=== PATIENT | male | born 1965 | race Caucasian/White ===

== ENCOUNTER 2018-07-19 20:09 | Emergency (ER) | payer SELFPAY ==
[2018-07-19] MEDS ORDERED: LIDOCAINE 1% W/EPI 1:100,000 MDV 50 ML VIAL ONE (20:31)
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
== END 2018-07-19 20:44 | disposition left against medical advice (07) ==
LOC: ER 20:09
PROC: 0JQ00ZZ Repair Scalp Subcutaneous Tissue and Fascia, Open Approach (ICD-10-PCS; principal; 2018-07-19)
DX: S01.01XA Laceration without foreign body of scalp, initial encounter (principal); W22.8XXA Striking against or struck by other objects, initial encounter; Y93.9 Activity, unspecified; Y92.39 Other specified sports and athletic area as the place of occurrence of the external cause
CPT/HCPCS: 99282

== ENCOUNTER 2018-08-02 17:27 | Emergency (ER) | payer SELFPAY ==
--- NOTE | 2018-08-02 18:03 | ER ---
Nurse's Notes [facility] Name: Mariano Berrios Age: 52 yrs Sex: Male : 1965 Arrival Date: 08/02/2018 Time: 17:29 Bed 2 Private MD: None, None Diagnosis: Encounter for removal of sutures-[place] Presentation: 08/02 17:39 Presenting complaint: Patient states: Here for staple removal from laceration to right aj forehead 15 days ago. Wound is well approximated with not signs of infection. Transition of care: patient was not received from another setting of care. Onset of symptoms was July 21, 2018. Risk Assessment: Do you want to hurt yourself or someone else? Patient reports no desire to harm self or others. Initial Sepsis Screen: Does the patient meet any 2 criteria? No. Patient's initial sepsis screen is negative. Does the patient have a suspected source of infection? No. Patient's initial sepsis screen is negative. Care prior to arrival: None. 17:39 Method Of Arrival: Ambulatory 17:39 Acuity: SONIDO 5 aj Triage Assessment: 17:42 General: Appears in no apparent distress. comfortable, Behavior is calm, cooperative, aj appropriate for age. Pain: Denies pain. Neuro: Level of Consciousness is awake, alert, obeys commands, Oriented to person, place, time, situation, Appropriate for age. Respiratory: Airway is patent Respiratory effort is even, unlabored, Respiratory pattern is regular, symmetrical. Derm: Skin is intact, is healthy with good turgor, Skin is pink, warm \\T\\ dry. normal. Historical: - Allergies: 17:42 No Known Allergies; aj - Home Meds: 17:42 None [Active]; aj - PMHx: 17:42 None; aj - PSHx: 17:42 Hernia repair; aj - Immunization history:: Adult Immunizations up to date. - Social history:: Smoking status: Patient/guardian denies using tobacco. - Ebola Screening: : Patient negative for fever greater than or equal to 101.5 degrees Fahrenheit, and additional compatible Ebola Virus Disease symptoms Patient denies exposure to infectious person Patient denies travel to an Ebola-affected area in the 21 days before illness onset No symptoms or risks identified at this time. Screenin:43 Abuse screen: Denies threats or abuse. Denies injuries from another. Nutritional ss screening: No deficits noted. Tuberculosis screening: No symptoms or risk factors identified. Never had TB. Fall Risk None identified. Assessment: 17:43 General: Appears in no apparent distress. comfortable, Behavior is calm, cooperative. ss Pain: Denies pain. Neuro: Level of Consciousness is awake, alert, obeys commands, Oriented to person, place, time, situation. Cardiovascular: Capillary refill < 3 seconds is brisk in bilateral fingers. Respiratory: Airway is patent Respiratory effort is even, unlabored, Respiratory pattern is regular, symmetrical. Derm: Skin is pink, warm \\T\\ dry. normal, 5 garland noted above R eyebrow. No redness, swelling or drainage noted. Patient denies pain. Garland were placed 15 days ago. Vital Signs: 17:42 BP 132 / 85; Pulse 95; Resp 17; Temp 97.7; Pulse Ox 98% on R/A; Weight 97.52 kg; Height aj 6 ft. 4 in. (193.04 cm); 17:42 Body Mass Index 26.17 (97.52 kg, 193.04 cm) ED Course: 17:29 Patient arrived in ED. mr 17:29 None, None is Private Physician. mr 17:41 Triage completed. aj 17:42 Arm band placed on right wrist. Patient placed in an exam room. aj 17:43 Shanice Juarez, RN is Primary Nurse. 17:43 Patient has correct armband on for positive identification. Bed in low position. Call light in reach. Side rails up X 1. 17:45 uSng Pyle [facility]. 17:45 Max Jefferson MD is Attending Physician. cp 18:09 garland removed (5), pt tolerated well. Patient did not have IV access during this emergency room visit. Wound care: attempted to place steri strips, pt states, "I'm just going to take them right off anyway, just put one on there." MAEVE Estevez notified. Administered Medications: No medications were administered Outcome: 18:02 Discharge ordered by . cp 18:09 Discharged to home ambulatory. 18:09 Condition: good 18:09 Discharge instructions given to patient, Instructed on discharge instructions, follow up and referral plans. wound care, Demonstrated understanding of instructions, follow-up care, wound care. 18:12 Patient left the ED. ss Signatures: Shona Craft RN RN aj Rivera, Mary mr Shanice Juarez RN RN ss Sung Pyle PA PA cp
--- NOTE | 2018-08-02 18:03 | EDPHYS ---
Physician Documentation [facility] Name: Mariano Berrios Age: 52 yrs Sex: Male : 1965 Arrival Date: 08/02/2018 Time: 17:29 Bed 2 Private MD: None, None ED Physician Max Jefferson HPI: 08/02 17:50 This 52 yrs old Male presents to ER via Ambulatory with complaints of Staple cp Removal. 17:50 The patient has garland on the right frontal scalp. cp 17:50 Previous treatment: The patient was initially treated on July 19, 2018, the care cp was rendered at [facility], Treatment type: The patient's original treatment included garland, Outpatient prescription(s): The patient was given prescription(s) for nothing, Previous recheck: the patient has not been checked since the original treatment. Sutures/garland progress: The patient has no c/o's. The wound is well-healing with no redness, swelling, discharge, or dehiscence reported. Historical: - Allergies: 17:42 No Known Allergies; aj - Home Meds: 17:42 None [Active]; aj - PMHx: 17:42 None; aj - PSHx: 17:42 Hernia repair; aj - Immunization history:: Adult Immunizations up to date. - Social history:: Smoking status: Patient/guardian denies using tobacco. - Ebola Screening: : Patient negative for fever greater than or equal to 101.5 degrees Fahrenheit, and additional compatible Ebola Virus Disease symptoms Patient denies exposure to infectious person Patient denies travel to an Ebola-affected area in the 21 days before illness onset No symptoms or risks identified at this time. ROS: 17:53 Constitutional: Negative for fever, chills, and weight loss. cp 17:53 Skin: Positive for laceration(s), of the right frontal scalp. 17:53 All other systems are negative. Exam: 17:55 Constitutional: The patient appears in no acute distress, alert, awake, comfortable, cp non-toxic, well developed, well nourished. 17:55 Head/face: Noted is a laceration(s), of the right frontal scalp. cp 17:55 Eyes: Periorbital structures: appear normal, Conjunctiva: normal, no exudate, no injection, Lids and lashes: appear normal, bilaterally. 17:55 ENT: External ear(s): are unremarkable, Nose: is normal, Mouth: Lips: moist, Oral mucosa: moist, Posterior pharynx: is normal, airway is patent. 17:55 Chest/axilla: Inspection: normal. 17:55 Cardiovascular: Rate: normal. 17:55 Respiratory: the patient does not display signs of respiratory distress, Respirations: normal. 17:55 Abdomen/GI: Exam negative for discomfort, distension, guarding, Inspection: abdomen appears normal. 17:55 Skin: Wound recheck: Staple laceration closure: the wound is healing well, the edges are well approximated, no evidence of dehiscence, no drainage, no erythema, no swelling. 17:55 Neuro: Orientation: to person, place \T\ time. Mentation: is normal, Motor: moves all fours, strength is normal, Gait: is steady. Vital Signs: 17:42 BP 132 / 85; Pulse 95; Resp 17; Temp 97.7; Pulse Ox 98% on R/A; Weight 97.52 kg; Height aj 6 ft. 4 in. (193.04 cm); 17:42 Body Mass Index 26.17 (97.52 kg, 193.04 cm) aj Procedures: 18:00 Suture/Staple removal: Removed 5 garland, from right frontal scalp area, site appears cp well healed, dressed with band aid, Neosporin, Patient tolerated well. MDM: 17:45 Patient medically screened. 18:02 Data reviewed: vital signs, nurses notes, and as a result, I will discharge patient. 18:02 Counseling: I had a detailed discussion with the patient and/or guardian regarding: the cp historical points, exam findings, and any diagnostic results supporting the discharge/admit diagnosis, to return to the emergency department if symptoms worsen or persist or if there are any questions or concerns that arise at home. 08/02 17:58 Order name: Wound dressing: steri-strips; Complete Time: 18:08 cp Administered Medications: No medications were administered Disposition: 18:15 Chart complete. 08/03 13:15 Co-signature as Attending Physician, Max Jefferson MD. [facility] Disposition: 08/02/18 18:02 Discharged to Home. Impression: Encounter for removal of sutures - [place]. - Condition is Stable. - Discharge Instructions: Stitches, Garland, or Adhesive Wound Closure. - Medication Reconciliation Form, Thank You Letter, Antibiotic Education, Prescription Opioid Use form. - Follow up: Emergency Department; When: As needed; Reason: Worsening of condition. - Problem is new. - Symptoms have improved. Signatures: Shona Craft RN RN aj Rittger, Kevin, MD MD kdr Smirch, Shelby, RN RN ss Page, Corey, PA PA cp Corrections: (The following items were deleted from the chart) 08/02 18:12 18:02 08/02/2018 18:02 Discharged to Home. Impression: Encounter for removal of sutures ss - Garland. Condition is Stable. Forms are Medication Reconciliation Form, Thank You Letter, Antibiotic Education, Prescription Opioid Use. Follow up: Emergency Department; When: As needed; Reason: Worsening of condition. Problem is new. Symptoms have improved. cp 08/03 02:23 08/02 17:50 This 52 yrs old Male presents to ER via Ambulatory with cp complaints of Suture Removal. cp
== END 2018-08-02 18:12 | disposition home or self-care (01) ==
LOC: ER 17:27
DX: Z48.02 Encounter for removal of sutures (principal)
CPT/HCPCS: 99283

== ENCOUNTER 2021-07-31 14:21 | Emergency (ER) | payer SELFPAY ==
[2021-07-31 14:40] LABS: Absolute Lymphocytes (CBC) 2.1 K/uL (0.7-4.9); Basophils % 1.2 % (0-1.3); Hematocrit 40.9 % (39.6-49.0); MPV 6.7 fL (7.6-11.3); RBC Red Blood Cell Count 4.37 M/uL (4.33-5.43)
[2021-07-31 14:43] LABS: Protime INR 0.91
[2021-07-31 14:51] LABS: Urine Blood Negative (Negative); Urine Glucose Negative (Negative); Urine Protein Negative (Negative); Urine Specific Gravity <=1.005 (1.005-1.030)
[2021-07-31 14:58] LABS: BUN Blood Urea Nitrogen 12 mg/dL (7-18); Bicarbonate 23 mmol/L (21-32); Glucose Level 98 mg/dL (74-106); Sodium Level 139 mmol/L (136-145); Troponin (Emerg Dept Use Only) < 0.02 ng/mL (0.0-0.045)
--- NOTE | 2021-07-31 15:11 | RAD REPORT ---
EXAM DESCRIPTION: CT - Ct Stroke Brain Wo Cont - 07/31/2021 2:54 pm CLINICAL HISTORY: WEAKNESSleft side with numbness, acute onset COMPARISON: <Comparisons>none TECHNIQUE: Axial 5 millimeter thick images of the head were obtained without IV contrast. All CT scans are performed using dose optimization technique as appropriate and may include automated exposure control or mA/KV adjustment according to patient size. FINDINGS: No intracranial hemorrhage, mass, or cerebral edema. No acute cortical based infarction id entified. No cortical edema or sulcal effacement. No significant atrophy or chronic ischemic change. Ventricles are normal. [place] matter-white matter differentiation is preserved. Visualized portions of the mastoid air cells, paranasal sinuses, and orbits are unremarkable. Findings telephoned to the doctor Rhina at 3:07 p.m. IMPRESSION: No CT evidence of acute intracranial process.
--- NOTE | 2021-07-31 15:12 | RAD REPORT ---
EXAM DESCRIPTION: CT - Head angio - 07/31/2021 2:56 pm CLINICAL HISTORY: left sided weakness and numbness TECHNIQUE: During dynamic enhancement using nonionic IV contrast, axial 1 millimeter thick images of the head were obtained. Sagittal and axial reconstruction images were generated using MIP technique and reviewed. All CT scans are performed using dose optimization technique as appropriate and may include automated exposure control or mA/KV adjustment according to patient size. COMPARISON: CT head same date FINDINGS: No aneurysm or vascular malformation identified. Major venous sinuses are patent. No stenosis, named branch occlusion, vasculitis or other significant vascular finding identifiable. IMPRESSION: Negative CT angio head examination.
--- NOTE | 2021-07-31 15:38 | RAD REPORT ---
EXAM DESCRIPTION: RAD - Chest Single View - 07/31/2021 3:12 pm CLINICAL HISTORY: weakness COMPARISON: None TECHNIQUE: AP portable chest image was obtained 07/31/2021 3:12 pm . FINDINGS: Lung volumes low accentuating bibasilar interstitial pattern. No consolidation or mass. No significant failure or volume overload suspected. Heart and vasculature are normal. No measurable pl eural effusion and no pneumothorax. No acute bony abnormality seen. No acute aortic findings suspecte d. IMPRESSION: No acute cardiopulmonary process.
[2021-07-31] MEDS ORDERED: ASPIRIN 81 MG CHEWABLE TABLET ONE (16:02)
[2021-07-31] MEDS ORDERED: cloNIDine HCL 0.1 MG TAB ONE (16:03)
--- NOTE | 2021-07-31 16:05 | EDPHYS ---
Physician Documentation [facility] Name: Mariano Berrios Age: 55 yrs Sex: Male : 1965 Arrival Date: 07/31/2021 Time: 14:23 Bed 7 Private MD: ED Physician Gordon Lantigua HPI: 07/31 14:57 This 55 yrs old Male presents to ER via Wheelchair with complaints of rn Left-sided weakness and numbness. 14:57 The patient presents to the emergency department with weakness of the left upper rn extremity, left lower extremity, that is mild, difficult walking, paresthesias of the left lower extremity, left upper extremity. Onset: The symptoms/episode began/occurred yesterday. Associated signs and symptoms: Pertinent positives: This patient does not have any pertinent positives. Pertinent negatives: altered mental status, fever. Historical: - Allergies: 14:27 No Known Allergies; ss - Home Meds: 14:27 "Cammie aspirin sometimes" [Active]; ss - PSHx: 14:27 abdominal surgery; ss - Immunization history:: Client reports receiving the 2nd dose of the Covid vaccine. - Social history:: Smoking status: Patient reports the use of cigarette tobacco products, smokes one-half pack cigarettes per day. - Family history:: not pertinent. - Hospitalizations: : No recent hospitalization is reported. ROS: 15:18 Constitutional: Negative for fever, chills, and weight loss, Eyes: Negative for injury, rn pain, redness, and discharge, Neck: Negative for injury, pain, and swelling, Cardiovascular: Negative for chest pain, palpitations, and edema, Respiratory: Negative for shortness of breath, cough, wheezing, and pleuritic chest pain, Abdomen/GI: Negative for abdominal pain, nausea, vomiting, diarrhea, and constipation, Back: Negative for injury and pain, MS/Extremity: Negative for injury and deformity, Skin: Negative for injury, rash, and discoloration, Neuro: Negative for headache, seizure 15:18 All other systems are negative. rn Exam: 15:18 Constitutional: This is a well developed, well nourished patient who is awake, alert, rn and in no acute distress. Eyes assistance to get into bed from wheelchair Head/Face: Normocephalic, atraumatic. Eyes: Periorbital areas with no swelling, redness, or edema. Cardiovascular: Regular rate and rhythm. No pulse deficits. Respiratory: No increased work of breathing, no retractions or nasal flaring. Abdomen/GI: Soft, non-tender, no masses, no pulsatile masses Skin: Warm, dry with normal turgor. Normal color with no rashes, no lesions, and no evidence of cellulitis. MS/ Extremity: Pulses equal, no cyanosis. Neuro: Awake and alert, GCS 15, oriented to person, place, time, and situation. Cranial nerves II-XII grossly intact. Motor strength 4-/5 LLE, 4/5LUE with drift, 5/5 strength RUE/RLE. Sensory decreased LLE/LUE. Cerebellar exam normal. Unable to ambulate without assistance 2/2 weakness of legs. Vital Signs: 14:23 BP 143 / 101; Pulse 97; Resp 19; Pulse Ox 98% on R/A; Weight 97.52 kg; Height 6 ft. 3 ss in. (190.50 cm); Pain 7/10; 14:23 Temp 97.9(TE); tw2 15:45 BP 150 / 112; Pulse 90; Resp 17; Pulse Ox 97% on R/A; tw2 14:23 Body Mass Index 26.87 (97.52 kg, 190.50 cm) ss MDM: 14:23 Patient medically screened. rn 15:09 ED course: No acute findings on CT or CT angio per Dr. Carreno. rn 15:51 Data reviewed: vital signs, nurses notes, lab test result(s). rn 16:03 Data interpreted: warp placer: rate is 90 beats/min, rhythm is normal sinus rhythm, rn regular, with no ectopy, Interpretation: normal rate, normal rhythm, Pulse oximetry: on room air is 97 %. Interpretation: normal. Counseling: I had a detailed discussion with the patient and/or guardian regarding: the historical points, exam findings, and any diagnostic results supporting the discharge/admit diagnosis, lab results, radiology results, the need for further work-up and treatment in the hospital. Response to treatment: There is no appreciated change of the patient's symptoms at this time, and as a result, I will admit patient. Admission orders: after a detailed discussion of the patient's condition and case, the admit orders are written by me. ED course: CT head and CT angio no acute findings. Was talking to patient who was initially okay with being admitted to the hospital, now refuses. Insists that we pull out his IV and let him go. Had a long talk with him in front of his family and notified him that I believe he is having a stroke and if he leaves without further evaluation and optimization of his medication and medical problems he can go on to have a larger more debilitating stroke. Patient understands this and verbalizes understanding and insists on going home.. 07/31 14:24 Order name: Basic Metabolic Panel; Complete Time: 15:12 rn 07/31 14:24 Order name: CBC with Diff; Complete Time: 15:12 07/31 14:24 Order name: Protime (+inr); Complete Time: 15:12 07/31 14:24 Order name: Ptt, Activated; Complete Time: 15:12 07/31 14:24 Order name: Troponin (emerg Dept Use Only); Complete Time: 15:12 07/31 14:43 Order name: Glucose, Ancillary Testing; Complete Time: 15:12 EDTN 07/31 14:24 Order name: CT Stroke Brain w/o Contrast; Complete Time: 15:12 07/31 14:24 Order name: Stroke CXR 1 View; Complete Time: 15:50 07/31 14:24 Order name: EKG; Complete Time: 14:25 07/31 14:24 Order name: CT Head Angio; Complete Time: 15:34 07/31 14:51 Order name: Urine Dipstick-Ancillary; Complete Time: 15:12 EDTN 07/31 14:24 Order name: Accucheck; Complete Time: 14:41 rn 07/31 14:24 Order name: Cardiac monitoring; Complete Time: 14:41 07/31 14:24 Order name: EKG - Nurse/Tech; Complete Time: 14:41 07/31 14:24 Order name: IV Saline Lock; Complete Time: 14:41 07/31 14:24 Order name: Labs collected and sent; Complete Time: 14:41 07/31 14:24 Order name: O2 Per Protocol; Complete Time: 14:41 07/31 14:24 Order name: O2 Sat Monitoring; Complete Time: 14:41 rn 07/31 14:24 Order name: Stroke Swallow Screen; Complete Time: 15:08 rn Administered Medications: 15:45 Drug: Aspirin Chewable Tablet 324 mg Route: PO; tw2 16:10 Follow up: Response: No adverse reaction tw2 15:45 Drug: cloNIDine 0.1 mg Route: PO; tw2 16:10 Follow up: Response: No adverse reaction tw2 Disposition Summary: 07/31/21 16:04 Left Against Medical Advice Location: Home rn Problem: new rn Symptoms: are unchanged rn Condition: Stable rn Diagnosis - Cerebral infarction, unspecified rn - Weakness rn - Paresthesia of skin rn Followup: rn - With: Marcel Colunga MD - When: As needed - Reason: Recheck today's complaints, Re-evaluation by your physician Discharge Instructions: - Discharge Summary Sheet rn - Paresthesia rn - Ischemic Stroke rn - Weakness rn - Sensory Loss After a Stroke rn Signatures: Dispatcher [employer] EDGordon Jones MD MD rn Smirch, Shelby, RN Loreta Evans RN RN tw2 Corrections: (The following items were deleted from the chart) 15:22 15:18 Constitutional: This is a well developed, well nourished patient who is awake, rn alert, and in no acute distress. Eyes assistance to get into bed from wheelchair Head/Face: Normocephalic, atraumatic. rn
--- NOTE | 2021-07-31 16:05 | ER ---
Nurse's Notes [facility] Name: Mariano Berrios Age: 55 yrs Sex: Male : 1965 Arrival Date: 07/31/2021 Time: 14:23 Bed 7 Private MD: Diagnosis: Cerebral infarction, unspecified;Weakness;Paresthesia of skin Presentation: 07/31 14:23 Chief complaint: Patient states: L sided pain and weakness that began yesterday ss morning. Coronavirus screen: Client denies travel out of the [place] in the last 14 days. Ebola Screen: Patient denies exposure to infectious person. Patient denies travel to an Ebola-affected area in the 21 days before illness onset. Initial Sepsis Screen: Does the patient meet any 2 criteria? No. Patient's initial sepsis screen is negative. Does the patient have a suspected source of infection? No. Patient's initial sepsis screen is negative. Risk Assessment: Do you want to hurt yourself or someone else? Patient reports no desire to harm self or others. Onset of symptoms was July 30, 2021 at 08:00. 14:23 Method Of Arrival: Wheelchair ss 14:23 Acuity: SONIDO 3 ss Historical: - Allergies: 14:27 No Known Allergies; ss - Home Meds: 14:27 "Cammie aspirin sometimes" [Active]; ss - PSHx: 14:27 abdominal surgery; ss - Immunization history:: Client reports receiving the 2nd dose of the Covid vaccine. - Social history:: Smoking status: Patient reports the use of cigarette tobacco products, smokes one-half pack cigarettes per day. - Family history:: not pertinent. - Hospitalizations: : No recent hospitalization is reported. Screenin:41 Abuse screen: Denies threats or abuse. Nutritional screening: No deficits noted. tw2 Tuberculosis screening: No symptoms or risk factors identified. Fall Risk None identified. 15:09 Patient has been NPO before screening. The patient is alert, able to follow commands. tw2 The patient does not exhibit slurred or garbled speech The patient is not exhibiting difficulty speaking. The patient does not exhibit difficulty understanding words. The patient is able to swallow own secretions with no drooling or need for suction. Patient tolerated one teaspoon of water. No drooling, immediate coughing, gurgling, or clearing of the throat was noted. The patient tolerated 90mL of water. No drooling, immediate coughing, gurgling, or clearing of the throat was noted. The patient passed the bedside swallow screening. Oral medications may be given as ordered. Contact Physician for further diet orders. Provider notified of bedside swallow screening results: Gordon Lantigua MD. Assessment: 15:45 Reassessment: provider at bedside at this time giving pt and family results. tw2 15:47 Reassessment: Patient appears in no apparent distress at this time. Patient and/or tw2 family updated on plan of care and expected duration. Pain level reassessed. Patient is alert, oriented x 3, equal unlabored respirations, skin warm/dry/pink. 16:15 Reassessment: pt states "maam, just come take all this off of me, im just ready to tw2 leave, i need to get my head right", pt encouraged to stay as recommended by provider Dr. Lantigua's instructions and recommendations. pt states "no just go ahead and get this all off of me". provider notified of pts requests. Vital Signs: 14:23 BP 143 / 101; Pulse 97; Resp 19; Pulse Ox 98% on R/A; Weight 97.52 kg; Height 6 ft. 3 ss in. (190.50 cm); Pain 7/10; 14:23 Temp 97.9(TE); tw2 15:45 BP 150 / 112; Pulse 90; Resp 17; Pulse Ox 97% on R/A; tw2 14:23 Body Mass Index 26.87 (97.52 kg, 190.50 cm) ED Course: 14:23 Patient arrived in ED. rn 14:23 Gordon Lantigua MD is Attending Physician. rn 14:23 Placed in gown. Bed in low position. Side rails up X2. hardboard panel printer on. Pulse ox on. tw2 NIBP on. 14:23 Inserted saline lock: 20 gauge in left wrist, using aseptic technique. Blood collected. tw2 14:27 Triage completed. ss 14:27 Arm band placed on left wrist. ss 14:41 Loreta Antunez, ELVIS is Primary Nurse. tw2 14:54 CT Stroke Brain w/o Contrast In Process Unspecified. EDMS 14:56 CT Head Angio In Process Unspecified. EDMS 15:12 Stroke CXR 1 View In Process Unspecified. EDMS 16:04 Marcel Colunga MD is Referral Physician. rn 16:16 IV discontinued, intact, bleeding controlled, No redness/swelling at site. Pressure tw2 dressing applied. Administered Medications: 15:45 Drug: Aspirin Chewable Tablet 324 mg Route: PO; tw2 16:10 Follow up: Response: No adverse reaction tw2 15:45 Drug: cloNIDine 0.1 mg Route: PO; tw2 16:10 Follow up: Response: No adverse reaction tw2 Outcome: 16:17 AMA AMA form signed tw2 16:17 Patient left the ED. tw2 Signatures: Dispatcher [employer] EDDE Gordon Lantigua MD MD rn Smirch, Shelby, RN RN ss Wise, Tara, RN RN tw2
[2021-07-31 16:41] VITALS: TEMP 97.9
[2021-07-31 16:42] VITALS: BP 150/112; O2SAT 97
--- NOTE | 2021-08-01 07:06 | EKG ---
Test Date: 2021-07-31 Test Time: 14:28:54 Lead Mobile Developer: BHUMIKA MEASUREMENT RESULTS: Intervals: Rate: 96 OK: 172 QRSD: 90 QT: 376 QTc: 475 Ledbetter: P: 41 OK: 172 QRS: 54 T: 67 INTERPRETIVE STATEMENTS: Normal sinus rhythm Possible Left atrial enlargement Borderline ECG Compared to ECG 07/29/2011 16:45:53 No significant changes Electronically Signed On 08-01-21 07:04:36 CDT by Victoriano Lowe
== END 2021-07-31 16:17 | disposition left against medical advice (07) ==
LOC: ER 14:21
DX: I63.9 Cerebral infarction, unspecified (principal); R20.2 Paresthesia of skin; F17.210 Nicotine dependence, cigarettes, uncomplicated
CPT/HCPCS: 36415; 70450; 70496; 71045; 80048; 81003; 82565; 82947; 84484; 85025; 85610; 85730; 93005; 99284; Q9967

== ENCOUNTER 2024-01-17 18:54 | Emergency (ER) | payer OTHER, SELFPAY ==
--- OUTSIDE RECORDS SUMMARY | 2024-01-17 19:01 | XMS REPORT | Continuity of Care Document ---
Author Name Unknown Address [address] [facility] [address] [place] [address] [facility] thconnect Address [address] [facility] [address] [place] [address] Care Team Providers Care Document Specialist Name Role Phone Unknown, Physician Primary Care Physician MIKEY Rivera Attending Clinician Unavailable EVANGELISTA Attending Clinician Unavailable Morris Fan DO Attending Clinician [phone] Keyshawn Starkey MD Attending Clinician [phone] Julito Day MD Attending Clinician [phone] EVANGELISTA Admitting Clinician Unavailable Keyshawn Starkey MD Admitting Clinician [phone] Payers Payer Name Policy Type Policy Number Effective Date Expirati on Date Source [employer] [id number] 2020 00:00:00 2024 00:00:00 Problems Condition Name Condition Details Condition Category Status Onset Date Resolution Date Last Treatment Date Treating Clinician Comments Source Chest pain Chest pain Disease Active 2020-10 00:00: 00 [facility] 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 Disease Active 2020-10 00:00: 00 [facility] Hyperkalem ia Hyperkalem ia Disease Active 2020-10 00:00: 00 [facility] 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 03-04 00:00: 00 [facility] Other chest pain Other chest pain Disease Active 11-14 00:00: 00 [facility] Essential hypertensi on, benign Essential hypertensi on, benign Disease Active 11-14 00:00: 00 [facility] Allergies, Adverse Reactions, Alerts Allergy Name Allergy Type Status Severity Reaction(s) Onset Date Inactive Date Treating Clinician Comments Source NO KNOWN ALLERGIE S Drug Class Active [facility] Social History Social Habit Start Date Stop Date Quantity Comments Source History of tobacco use Cigarette Smoker [facility] Exposure to SARS-CoV-2 (event) Not sure [facility] Alcohol intake 2021-08-01 00:00:00 2021-08-01 00:00:00 1.43 /d [facility] Sex Ass[birth year] At 1965 00:00:00 1965 00:00:00 [facility] Smoking Status Start Date Stop Date Source Current every day smoker [facility] Tobacco smoking consumption unknown [facility] Medications Ordered Medication Name Filled Medication Name Start Date Stop Date Current Medication? Ordering Clinician Indication Dosage Frequency Signature (SIG) Comments Components Source enalapril (VASOTEC) tablet 2.5 mg 2020-10 14:00: 00 Yes 2.5mg 2.5 mg, Oral, DAILY, First dose on Sun08/02/21 at 0900, Until Discontinu ed, Routine [facility] aspirin chewable tablet 81 mg 2020-10 14:00: 00 Yes 81mg 81 mg, Oral, DAILY, First dose on Sun08/02/21 at 0900, Until Discontinu ed, Routine [facility] atorvastati n (LIPITOR) tablet 20 mg 2020-10 02:00: 00 Yes 20mg 20 mg, Oral, QHS, First dose on Sun08/01/21 at 2100, Until Discontinu ed, Routine [facility] metoprolol tartrate (LOPRESSOR) tablet 25 mg 2020-10 01:00: 00 Yes 25mg 25 mg, Oral, BID, First dose on Sun08/01/21 at 2000, Until Discontinu ed, Routine [facility] isosorbide dinitrate (ISORDIL) tablet 20 mg 2020-10 01:00: 00 Yes 20mg 20 mg, Oral, BID, First dose on Sun08/01/21 at 2000, Until Discontinu ed, Routine [facility] nicotine (NICODERM) 14 mg/24 hr patch 1 Patch 2020-10 00:30: 00 Yes 1{patch } 1 Patch, Topical, Administer over 24 Hours, Q24H, First dose on Sun08/01/21 at 1930, Until Discontinu ed, Routine [facility] aspirin 81 mg chewable tablet 2020-10 00:00: 00 Yes [id number] 81mg Take 1 tablet by mouth daily. [facility] atorvastati n 20 mg tablet 2020-10 00:00: 00 Yes [id number] 1 by mouth every day at bedtime [facility] hydroCHLORO thiazide 25 mg tablet 2020-10 00:00: 00 09-02 05:59 :00 No [id number] 25mg Take 1 tablet by mouth daily for 30 days. [facility] isosorbide dinitrate 20 mg tablet 2020-10 00:00: 00 09-02 05:59 :00 No [id number] 20mg Take 1 tablet by mouth 2 (two) times daily for 30 days. [facility] sodium polystyrene sulfonate (KAYEXALATE ) 15 gram/60 mL suspension 15 g 2020-10 23:45: 00 08-02 02:25 :00 No 15g 15 g, Oral, ONCE, 1 dose, On Sun08/01/21 at 1845, Routine [facility] ketorolac (TORADOL) injection 30 mg 2020-10 23:16: 08 Yes 30mg 30 mg, Slow IV Push, Q6HPRN, 4 doses, Starting on Sun08/01/21 at 1816, Until Discontinu ed, Routine, Pain (scale 4-6)
[facility] approving Restricted medication : MEGADC [facility] zolpidem (AMBIEN) tablet 5 mg 2020-10 23:15: 31 Yes 5mg 5 mg, Oral, QHSPRN, Starting on Sun08/01/21 at 1815, Until Discontinu ed, Routine, Insomnia [facility] nitroglycer in (NITROSTAT) sublingual tablet 0.4 mg 2020-10 22:45: 00 08-01 21:50 :00 No .4mg 0.4 mg, Sublingual , ONCE, 1 dose, On Sun08/01/21 at 1745, Routine [facility] morpHINE injection 2 mg 2020-10 21:36: 14 Yes 2mg 2 mg, Slow IV Push, Q4HPRN, Starting on Sun08/01/21 at 1636, Until Discontinu ed, Routine, Pain (scale 7-10), Chest pain [facility] acetaminoph en (TYLENOL) tablet 650 mg 2020-10 17:59: 24 Yes 650mg 650 mg, Oral, Q6HPRN, Starting on Sun08/01/21 at 1259, Until Discontinu ed, Routine, Pain (scale 1-3) [facility] iopamidol (ISOVUE 370-500 mL) injection 100 mL 2020-10 17:30: 00 08-01 16:12 :00 No [id number] 100mL 100 mL, Intravenou s, ONCE, 1 dose, On Sun08/01/21 at 1230, Routine [facility] LORazepam (ATIVAN) injection 1 mg 2020-10 16:45: 00 08-01 15:45 :00 No 1mg 1 mg, Slow IV Push, ONCE, 1 dose, On Sun08/01/21 at 1145, STAT [facility] No known medications 03-04 13:04: 50 No No known medication s [facility] No known medications 03-04 13:04: 50 No No known medication s [facility] Acetaminoph en Extra Strength 500 MG tablet [id number] 00:00: 00 Yes 2{tbl} Q6H Take 2 tablets by mouth every 6 (six) hours. Take for 14 days [facility] ASPIRIN 81 MG ORAL CHEW 11-16 00:00: 00 08-02 00:00 :00 No 1 Tab Oral DAILY [facility] NITROGLYCER IN 0.4 MG SL SUBL 11-16 00:00: 00 08-02 00:00 :00 No 1 Tab SL Q5MIN PRN chest pain [facility] METOPROLOL TARTRATE 25 MG ORAL TAB 11-16 00:00: 00 08-02 00:00 :00 No 1 Tab Oral BID [facility] ENALAPRIL MALEATE 2.5 MG ORAL TAB 11-16 00:00: 00 08-02 00:00 :00 No 1 Tab Oral DAILY [facility] ATORVASTATI N 20 MG ORAL TAB 11-16 00:00: 00 08-02 00:00 :00 No 1 by mouth every day at bedtime [facility] ISOSORBIDE DINITRATE 20 MG ORAL TAB 11-16 00:00: 00 08-02 00:00 :00 No 1 Tab Oral TIDHOL [facility] Vital Signs Vital Name Observation Time Observation Value Comments S ource Oxygen saturation in Arterial blood by Pulse oximetry 2021-08-02 13:00:00 95 /min [facility] Systolic blood pressure 2021-08-02 13:00:00 126 mm[Hg] [facility] Diastolic blood pressure 2021-08-02 13:00:00 76 mm[Hg] [facility] Heart rate 2021-08-02 13:00:00 87 /min [facility] Body temperature 2021-08-02 13:00:00 36.83 Yanci [facility] Respiratory rate 2021-08-02 10:00:00 18 /min [facility] Body height 2021-08-01 15:07:00 185.4 cm [facility] Body weight 2021-08-01 15:07:00 97.523 kg [facility] BMI 2021-08-01 15:07:00 28.37 kg/m2 [facility] Systolic blood pressure 2021-03-03 15:30:00 147 mm[Hg] [facility] Diastolic blood pressure 2021-03-03 15:30:00 102 mm[Hg] [facility] Heart rate 2021-03-03 15:30:00 87 /min [facility] Body temperature 2021-03-03 15:30:00 36.44 Yanci [facility] Body height 2021-03-03 15:30:00 [facility] Body weight 2021-03-03 15:30:00 90[facility]719 [facility] BMI 2021-03-03 15:30:00 24.34 kg/m2 [facility] Oxygen saturation in Arterial blood by Pulse oximetry 2021-03-03 15:30:00 97 /min [facility] Systolic blood pressure 2021-03-03 15:30:00 147 mm[Hg] [facility] Diastolic blood pressure 2021-03-03 15:30:00 102 mm[Hg] [facility] Heart rate 2021-03-03 15:30:00 87 /min [facility] Body temperature 2021-03-03 15:30:00 36.44 Yanci [facility] Body height 2021-03-03 15:30:00 193 [facility] Body weight 2021-03-03 15:30:00 90.719 [facility] BMI 2021-03-03 15:30:00 24.34 kg[facility]m2 [facility] Oxygen saturation in Arterial blood by Pulse oximetry 2021-03-03 15:30:00 97 /min [facility] Procedures Procedure Date / Time Performed Performing Clinician Source TROPONIN I 2021-08-02 10:53:00 Jay Tamez [facility] BASIC METABOLIC PANEL (NA, K, CL, CO2, GLUCOSE, BUN, CREATININE, CA) 2021-08-02 10:53:00 Keyshawn Starkey [facility] CBC WITH DIFF 2021-08-02 10:53:00 Keyshawn Starkey [facility] TROPONIN I 2021-08-02 06:21:00 Lisa Rice [facility] TROPONIN I 2021-08-01 23:44:00 Lisa Rice [facility] BASIC METABOLIC PANEL (NA, K, CL, CO2, GLUCOSE, BUN, CREATININE, CA) 2021-08-01 23:44:00 Keyshawn Starkey [facility] TRANSTHORACIC ECHO (TTE) COMPLETE 2021-08-01 20:17:00 Keyshawn Starkey [facility] COVID-19 (ID NOW RAPID TESTING) 2021-08-01 17:14:00 Singer [facility] CT CHEST PULMONARY ANGIOGRAM 2021-08-01 16:15:49 Singer [facility] XR CHEST 1 VW 2021-08-01 15:40:21 Singer [facility] MAGNESIUM 2021-08-01 15:19:00 Singer [facility] TROPONIN I 2021-08-01 15:19:00 Singer [facility] COMP. METABOLIC PANEL ([id number]) 2021-08-01 15:19:00 Singer [facility] CBC WITH DIFF 2021-08-01 15:19:00 Singer [facility] N-TERMINAL PRO-BNP 2021-08-01 15:19:00 Singer [facility] HB ECG ROUTINE & RHYTHM STRIP 2021-08-01 15:14:38 Singer [facility] NOTICE OF PRIVACY PRACTICES 2021-08-01 14:57:29 Doctor Unassigned, [place] [facility] Encounters Start Date/Time End Date/Time Encounter Type Admission Type Attending Clinicians Care Facility Care Department Encounter ID Source 2021-02-26 03:58:51 Outpatient MIKEY FREEMAN [facility] [id number] [facility] 2022-05-19 00:00:00 2022-05-19 00:00:00 Outpatient [facility] [id number] Jessica da [facility] Outre h Program 2021-08-01 10:10:00 2021-08-02 11:48:00 Emergency Fan, Morris Starkey Keyshawn [facility] [id number] [facility] 2021-08-01 09:58:00 2021-08-01 09:58:00 Emergency X [facility] ERT [id number] [facility] 2021-03-03 10:04:24 2021-03-03 10:53:13 Office Visit Mikey Freeman [facility] 3 [id number] 2021-03-03 10:04:24 2021-03-03 10:53:13 Office Visit Mikey Freeman [facility] 3 [id number] [facility] 2020-12-15 00:00:00 2020-12-15 00:00:00 EXT [facility] Julito Jauregui [facility]T [facility] [id number] [facility] 2020-12-15 00:00:00 2020-12-15 00:00:00 EXT [facility] Julito Jauregui EXT [facility] LOCATION [id number] [facility] Results Test Description Test Time Test Comments Results Result Co mments Source [facility] (NA, K, CL, CO2, GLUCOSE, BUN, CREATININE, CA)2021-08-02 12:11:40* Test Item Value Reference Range Interpretation Comme nts NA (test code = 2777378990) 137 mmol/L 135-145 K (test code = 8537673466) 4.4 mmol/L 3.5-5.0 CL (test code = 5379498833) 109 mmol/L 98-108 H CO2 TOTAL (test code = 5880311158) 23 mmol/L 23-31 AGAP (test code = 0803997801) 2-16 BUN (test code = 6438634584) 14 mg/dL 7-23 GLUCOSE (test code = 6831453431) 97 mg/dL 70-110 CREATININE (test code = 6536653803) 0.84 mg/dL 0.60-1.25 CALCIUM (test code = 1145221734) 9.2 mg/dL 8.6-10.6 eGFR (test code = 5212986433) mL/min/1.73m2 DAVID (test code = DAVID) Association of Glomerular Filtration Rate (GFR) and Staging of Kidney Disease* + --+ --+ ------+| GFR (mL/min/1.73 m2) ?| With Kidney Damage ?| ?Without Kidney Damage+ --------+ --------+ +| ?>90 ?| ?Stage one ?| ? Normal ?+ ---+ ---+ -------+| ?60-89 ?| ?Stage two ?| ? Decreased GFR ? + --+ --+ ------+| ?30-59 ?| ?Stage three ?| ? Stage three ? + --+ --+ ------+| ?15-29 ?| ?Stage four ? | ? Stage four ?+ ---+ ---+ -------+| ?<15 (or dialysis) ? ?| ?Stage five ? | ? Stage five ?+ ---+ ---+ -------+ *Each stage assumes the associated GFR level has been in effect for at least three months. ?Stages 1 to 5, with or without kidney disease, indicate chronic kidney disease. Notes: Determination of stages one and two (with eGFR >59mL/min/1.73 m2) requires estimation of kidney damage for at least three months as defined by structural or functional abnormalities of the kidney, manifested by either:Pathological abnormalities or Markers of kidney damage (including abnormalities in the composition of the blood or urine or abnormalities in imaging tests). Lab Interpretation (test code = 90308-9) Abnormal [facility] with [id number] 11:40:38* Test Item Value Reference Range Interpretation Comme nts WBC (test code = 6690-2) See_Comment [Automated messa ge] The system which generated this result transmitted reference range: 4.20 - 10.70 10*3/?L. The reference range was not used to interpret this result as normal/abnormal. RBC (test code = 789-8) See_Comment L [Automated messa ge] The system which generated this result transmitted reference range: 4.26 - 5.52 10*6/?L. The reference range was not used to interpret this result as normal/abnormal. HGB (test code = 718-7) 12.9 g/dL 12.2-16.4 HCT (test code = 4544-3) 38.4 % 38.4-49.3 MCV (test code = 787-2) 93.9 fL 81.7-95.6 MCH (test code = 785-6) 31.5 pg 26.1-32.7 MCHC (test code = 786-4) 33.6 g/dL 31.2-35.0 RDW-SD (test code = 51864-6) 42.2 fL 38.5-51.6 RDW-CV (test code = 788-0) 12.2 % 12.1-15.4 PLT (test code = 777-3) See_Comment [Automated messa ge] The system which generated this result transmitted reference range: 150 - 328 10*3/?L. The reference range was not used to interpret this result as normal/abnormal. MPV (test code = 17742-0) 9.4 fL 9.8-13.0 L NRBC/100 WBC (test code = 1725147287) See_Comment [Automated [employer] ssage] The system which generated this result transmitted reference range: 0.0 - 10.0 /100 WBCs. The reference range was not used to interpret this result as normal/abnormal. NRBC x10^3 (test code = 2194813066) <0.01 See_Comment [Automated messa ge] The system which generated this result transmitted reference range: 10*3/?L. The reference range was not used to interpret this result as normal/abnormal. GRAN MAT (NEUT) % (test code = 770-8) 47.9 % IMM GRAN % (test code = 4496869412) 0.80 % LYMPH % (test code = 736-9) 34.9 % MONO % (test code = 5905-5) 8.9 % EOS % (test code = 713-8) 6.5 % BASO % (test code = 706-2) 1.0 % GRAN MAT x10^3(ANC) (test code = 0702035440) 2.41 10*3/uL 1.99-6.95 IMM GRAN x10^3 (test code = 7720363097) 0.04 10*3/uL 0.00-0.06 LYMPH x10^3 (test code = 731-0) 1.76 10*3/uL 1.09-3.23 MONO x10^3 (test code = 742-7) 0.45 10*3/uL 0.36-1.02 EOS x10^3 (test code = 711-2) 0.33 10*3/uL 0.06-0.53 BASO x10^3 (test code = 704-7) 0.05 10*3/uL 0.01-0.09 Lab Interpretation (test code = 03426-1) Abnormal [facility] [id number] 07:15:45* Test Item Value Reference Range Interpretation Comments TROPONIN I (test code = 5464921055) 0.004 ng/mL See_Comment [Automated message] The system which generated this result transmitted reference range: <=0.034. The reference range was not used to interpret this result as normal/abnormal. DAVID (test code = DAVID) Reference (Normal) Range (defined by the 99th percentile reference limit): <= 0.034 ng/mL Note: Cardiac troponin begins to rise 3-4 hours after the onset of ischemia. Repeat in 4-6 hours if the sample was drawn within 3-4 hours of the onset of the symptom and found normal. Diagnosis of myocardial injury is made with acute changes in cTn concentrations with at least one serial sample above the 99th percentile upper reference limit (URL), taken together with the patient's clinical presentation. Biotin has been reported to cause a negative bias, interpret results relative to patient's use of biotin. Lab Interpretation (test code = 55847-0) Normal [facility] [id number] 00:51:43* Test Item Value Reference Range Interpretation Comments TROPONIN I (test code = 5257627304) 0.005 ng/mL See_Comment [Automated message] The system which generated this result transmitted reference range: <=0.034. The reference range was not used to interpret this result as normal/abnormal. DAVID (test code = DAVID) Reference (Normal) Range (defined by the 99th percentile reference limit): <= 0.034 ng/mL Note: Cardiac troponin begins to rise 3-4 hours after the onset of ischemia. Repeat in 4-6 hours if the sample was drawn within 3-4 hours of the onset of the symptom and found normal. Diagnosis of myocardial injury is made with acute changes in cTn concentrations with at least one serial sample above the 99th percentile upper reference limit (URL), taken together with the patient's clinical presentation. Biotin has been reported to cause a negative bias, interpret results relative to patient's use of biotin. Lab Interpretation (test code = 86878-4) Normal [facility] METABOLIC PANEL (NA, K, CL, CO2, GLUCOSE, BUN, CREATININE, CA)2021-08-02 00:45:38* Test Item Value Reference Range Interpretation Comme nts NA (test code = 0199879905) 136 mmol/L 135-145 K (test code = 2249152500) 4.6 mmol/L 3.5-5.0 CL (test code = 4873778607) 107 mmol/L 98-108 CO2 TOTAL (test code = 6505812803) 23 mmol/L 23-31 AGAP (test code = 0696845375) 2-16 BUN (test code = 9437980158) 18 mg/dL 7-23 GLUCOSE (test code = 2932737109) 112 mg/dL 70-110 H CREATININE (test code = 4117477867) 0.95 mg/dL 0.60-1.25 CALCIUM (test code = 9453489382) 9.2 mg/dL 8.6-10.6 eGFR (test code = 7427661739) mL/min/1.73m2 DAVID (test code = DAVID) Association of Glomerular Filtration Rate (GFR) and Staging of Kidney Disease* + --+ --+ ------+| GFR (mL/min/1.73 m2) ?| With Kidney Damage ?| ?Without Kidney Damage+ --------+ --------+ +| ?>90 ?| ?Stage one ?| ? Normal ?+ ---+ ---+ -------+| ?60-89 ?| ?Stage two ?| ? Decreased GFR ? + --+ --+ ------+| ?30-59 ?| ?Stage three ?| ? Stage three ? + --+ --+ ------+| ?15-29 ?| ?Stage four ? | ? Stage four ?+ ---+ ---+ -------+| ?<15 (or dialysis) ? ?| ?Stage five ? | ? Stage five ?+ ---+ ---+ -------+ *Each stage assumes the associated GFR level has been in effect for at least three months. ?Stages 1 to 5, with or without kidney disease, indicate chronic kidney disease. Notes: Determination of stages one and two (with eGFR >59mL/min/1.73 m2) requires estimation of kidney damage for at least three months as defined by structural or functional abnormalities of the kidney, manifested by either:Pathological abnormalities or Markers of kidney damage (including abnormalities in the composition of the blood or urine or abnormalities in imaging tests). Lab Interpretation (test code = 25986-8) [facility]normal [facility] [id number] 15:54:44* Test Item Value Reference Range Interpretation Comments TROPONIN I (test code = 0825899117) 0.022 ng/mL See_Comment [Automated message] The system which generated this result transmitted reference range: <=0.034. The reference range was not used to interpret this result as normal/abnormal. DAVID (test code = DAVID) Reference (Normal) Range (defined by the 99th percentile reference limit): <= 0.034 ng/mL Note: Cardiac troponin begins to rise 3-4 hours after the onset of ischemia. Repeat in 4-6 hours if the sample was drawn within 3-4 hours of the onset of the symptom and found normal. Diagnosis of myocardial injury is made with acute changes in cTn concentrations with at least one serial sample above the 99th percentile upper reference limit (URL), taken together with the patient's clinical presentation. Biotin has been reported to cause a negative bias, interpret results relative to patient's use of biotin. Lab Interpretation (test code = 06183-7) Normal [facility] [id number] 15:52:25* Test Item Value Reference Range Interpretation Comme nts NT-proBNP (test code = 6359040761) 69 pg/mL See_Comment [Automated message] The system which generated this result transmitted reference range: <=125. The reference range was not used to interpret this result as normal/abnormal. DAVID (test code = DAVID) Biotin has been reported to cause a negative bias, interpret results relative to patient's use of biotin. Lab Interpretation (test code = 82692-2) [facility] [id number] 15:45:21* Test Item Value Reference Range Interpretation Comme nts WBC (test code = 6690-2) See_Comment [Automated Convoa ge] The system which generated this result transmitted reference range: 4.20 - 10.70 10*3/?L. The reference range was not used to interpret this result as normal/abnormal. RBC (test code = 789-8) See_Comment [Automated Convoa ge] The system which generated this result transmitted reference range: 4.26 - 5.52 10*6/?L. The reference range was not used to interpret this result as normal/abnormal. HGB (test code = 718-7) 14.1 g/dL 12.2-16.4 HCT (test code = 4544-3) 42.1 % 38.4-49.3 MCV (test code = 787-2) 94.6 fL 81.7-95.6 MCH (test code = 785-6) 31.7 pg 26.1-32.7 MCHC (test code = 786-4) 33.5 g/dL 31.2-35.0 RDW-SD (test code = 31278-5) 42.5 fL 38.5-51.6 RDW-CV (test code = 788-0) 12.3 % 12.1-15.4 PLT (test code = 777-3) See_Comment [Automated Convoa ge] The system which generated this result transmitted reference range: 150 - 328 10*3/?L. The reference range was not used to interpret this result as normal/abnormal. MPV (test code = 35619-3) 9.4 fL 9.8-13.0 L NRBC/100 WBC (test code = 7752805190) See_Comment [Automated me ssage] The system which generated this result transmitted reference range: 0.0 - 10.0 /100 WBCs. The reference range was not used to interpret this result as normal/abnormal. NRBC x10^3 (test code = 7566600999) <0.01 See_Comment [Automated messa ge] The system which generated this result transmitted reference range: 10*3/?L. The reference range was not used to interpret this result as normal/abnormal. GRAN MAT (NEUT) % (test code = 770-8) 56.2 % IMM GRAN % (test code = 4221258033) 0.50 % LYMPH % (test code = 736-9) 28.1 % MONO % (test code = 5905-5) 9.2 % EOS % (test code = 713-8) 5.4 % BASO % (test code = 706-2) 0.6 % GRAN MAT x10^3(ANC) (test code = 7379732551) 3.56 10*3/uL 1.99-6.95 IMM GRAN x10^3 (test code = 3892408498) 0.03 10*3/uL 0.00-0.06 LYMPH x10^3 (test code = 731-0) 1.78 10*3/uL 1.09-3.23 MONO x10^3 (test code = 742-7) 0.58 10*3/uL 0.36-1.02 EOS x10^3 (test code = 711-2) 0.34 10*3/uL 0.06-0.53 BASO x10^3 (test code = 704-7) 0.04 10*3/uL 0.01-0.09 Lab Interpretation (test code = 65743-5) Abnormal [facility]. METABOLIC PANEL (55656)2021-08-01 15:41:02* Test Item Value Reference Range Interpretation Comme nts NA (test code = 9961297617) 136 mmol/L 135-145 K (test code = 8891997871) 6.0 mmol/L 3.5-5.0 H CL (test code = 2417893042) 109 mmol/L 98-108 H CO2 TOTAL (test code = 7835191493) 22 mmol/L 23-31 L AGAP (test code = 3451736838) 2-16 BUN (test code = 5941482208) 17 mg/dL 7-23 GLUCOSE (test code = 3851809753) 99 mg/dL 70-110 CREATININE (test code = [id number]) 1.19 mg/dL 0.60-1.25 TOTAL BILI (test code = 4891846554) 1.0 mg/dL 0.1-1.1 CALCIUM (test code = 9887319712) 9.3 mg/dL 8.6-10.6 T PROTEIN (test code = 5426768851) 8.5 g/dL 6.3-8.2 H ALBUMIN (test code = 1877003327) 4.5 g/dL 3.5-5.0 ALK PHOS (test code = 4421413341) 84 U/L 34-122 ALTv (test code = 1742-6) 19 U/L 5-50 AST(SGOT) (test code = 8620518601) 35 U/L 13-40 eGFR (test code = 2559501424) mL/min/1.73m2 DAVID (test code = DAVID) Association of Glomerular Filtration Rate (GFR) and Staging of Kidney Disease* + --+ --+ ------+| GFR (mL/min/1.73 m2) ?| With Kidney Damage ?| ?Without Kidney Damage+ --------+ --------+ +| ?>90 ?| ?Stage one ?| ? Normal ?+ ---+ ---+ -------+| ?60-89 ?| ?Stage two ?| ? Decreased GFR ? + --+ --+ ------+| ?30-59 ?| ?Stage three ?| ? Stage three ? + --+ --+ ------+| ?15-29 ?| ?Stage four ? | ? Stage four ?+ ---+ ---+ -------+| ?<15 (or dialysis) ? ?| ?Stage five ? | ? Stage five ?+ ---+ ---+ -------+ *Each stage assumes the associated GFR level has been in effect for at least three months. ?Stages 1 to 5, with or without kidney disease, indicate chronic kidney disease. Notes: Determination of stages one and two (with eGFR >59mL/min/1.73 m2) requires estimation of kidney damage for at least three months as defined by structural or functional abnormalities of the kidney, manifested by either:Pathological abnormalities or Markers of kidney damage (including abnormalities in the composition of the blood or urine or abnormalities in imaging tests). Lab Interpretation (test code = 77015-9) [facility] Test Item Value Reference Range Interpretation Comme nts MAGNESIUM (test code = 3855443906) 2.0 mg/dL 1.7-2.4 Lab Interpretation (test cod e = 07998-8) Normal [facility]"
[2024-01-17] MEDS ORDERED: HYDROCODONE/APAP 10/325 TAB ONE (19:30)
[2024-01-17 19:47] LABS: Specific Gravity < 1.005 (1.005-1.030); Urine Bilirubin NEGATIVE (Negative); Urine Blood Negative (Negative); Urine Clarity Clear (Clear); Urine Color Colorless (Yellow); Urine Glucose NEGATIVE (Negative); Urine Ketones NEGATIVE (Negative); Urine Microscopic Reflex YN NO UMIC; Urine Nitrite NEGATIVE (Negative); Urine Protein NEGATIVE (Negative); Urine Urobilinogen Normal (Normal); Urine pH 5.5 (5.0-7.0)
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
--- NOTE | 2024-01-17 21:54 | RAD REPORT ---
EXAM DESCRIPTION: CT - Head C Spine Cap Wo Con - 01/17/2024 8:33 pm CLINICAL HISTORY: TRAUMA COMPARISON: No comparisons TECHNIQUE: Head and cervical spine CT images were obtained without IV contrast. Chest, abdomen, and pelvis CT images were obtained also without IV contrast. Multiplanar reformats were generated and rev iewed. All CT scans are performed using dose optimization technique as appropriate and may include automated exposure control or mA/KV adjustment according to patient size. FINDINGS: CT HEAD: No intracranial hemorrhage, mass effect, or edema. No evidence of acute territorial infarct. No midli ne shift or abnormal fluid collection. The ventricles are normal in caliber and configuration for age . Basal cisterns are patent. Mastoid aircells and paranasal sinuses are clear. No acute skull fractur e. CT CERVICAL SPINE: No acute cervical spine fracture or subluxation. Vertebral body heights are well maintained. Facet magaly ints are normal in alignment. No hyperattenuating canal hematoma. Moderate degenerative changes of th e cervical spine. Prevertebral and paraspinous soft tissues are unremarkable. CT CHEST: No pneumothorax, pulmonary contusion or pleural fluid collection. No mediastinal hematoma and the aor ta and pulmonary arteries are unremarkable. No chest will mass or abnormal axillary finding. No displ aced rib fracture or other significant bony finding. CT ABDOMEN/ PELVIS: No evidence of traumatic injury to solid abdominal viscera. Gallbladder and biliary tree are unremark able. No bowel injury or significant finding. 1.5 cm mildly hyperdense lesion along the left upper to mid renal pole, favoring a hemorrhagic or partially mineralized cyst, not well characterized. No nena e air, free fluid or abnormal fat stranding. No urinary bladder abnormality. No significant bony finding. IMPRESSION: No acute traumatic findings. Incidental findings as above.
--- NOTE | 2024-01-17 22:10 | RAD REPORT ---
EXAM DESCRIPTION: RAD - Knee Left 3 View - 01/17/2024 8:22 pm CLINICAL HISTORY: PAIN COMPARISON: No comparisons TECHNIQUE: Left knee, 3 views. FINDINGS: No fracture, dislocation or periosteal reaction.No joint effusion seen. No joint space patricia rowing. No soft tissue abnormality. Osseous bridging varus along the caudal aspect of the patella, ma y relate to fused accessory ossicle, developmental anomaly, or remodeled ossification at the patellar tendon attachment. IMPRESSION: No acute osseous abnormality.
[2024-01-17 22:25] VITALS: BP 165/105; TEMP 97.9; O2SAT 97
== END 2024-01-17 21:55 | disposition home or self-care (01) ==
LOC: ER 18:54
DX: S00.511A Abrasion of lip, initial encounter (principal); S80.02XA Contusion of left knee, initial encounter; S00.531A Contusion of lip, initial encounter; R29.91 Unspecified symptoms and signs involving the musculoskeletal system; I10 Essential (primary) hypertension; V49.49XA Driver injured in collision with other motor vehicles in traffic accident, initial encounter; F17.210 Nicotine dependence, cigarettes, uncomplicated
CPT/HCPCS: 70450; 71250; 72125; 81003; 99285